=== PATIENT | male | born 1985 | race American Indian/Alaskan Native ===

== ENCOUNTER → 2023-05-18 09:22 | Outpatient (CLI) | payer MEDICAID, OTHER, SELFPAY ==
--- NOTE | 2023-05-18 | DI.RAD.S_ITS ---
PROCEDURE: XR CHEST 2V INDICATIONS: dive physical examination TECHNIQUE: 2 views of the chest were acquired. COMPARISON: None. FINDINGS: Surgical changes and devices: None. Lungs and pleura: Lungs are clear. No pleural effusions or pneumothorax. Mediastinum: Mediastinal contours are normal. Heart size is normal. Bones and chest wall: No suspicious bony abnormalities. Soft tissues appear unremarkable. IMPRESSION: No acute cardiopulmonary pathology. Dictated by: Horace Arvizu M.D. on 05/18/2023 at 11:11 Approved by: Horace Arvizu M.D. on 05/18/2023 at 11:11
== END ==
PROVIDERS: PCP Family Medicine; Referring Provider Family Medicine; Visit Provider Family Medicine
DX: Z01.89 Encounter for other specified special examinations (principal)
CPT/HCPCS: 71046

== ENCOUNTER → 2023-05-25 09:46 | Outpatient (CLI) | payer MEDICAID, OTHER, SELFPAY ==
--- NOTE | 2023-06-02 14:43 | PM.PFT.1 ---
Pulmonary Function Test Referral & Results Date Patient Seen: 05/25/23 Results: The spirometry demonstrates an FVC of 4.88 L which is 103% of predicted. The FEV1 was measured at 3.80 L which is 99% of predicted. The FEV1/FVC ratio was 78 which is 95% of predicted. Following the administration of bronchodilator there was 49% improvement in FEF 25-75%. Lung volumes show an SVC of 5.03 L which is 109% of predicted. The diffusing capacity was measured at 31.42 which is 116% of predicted. The maximum voluntary ventilation was normal Interpretation: This study demonstrates normal pulmonary function
== END ==
PROVIDERS: PCP Family Medicine; Referring Provider Family Medicine; Visit Provider Family Medicine
DX: J98.8 Other specified respiratory disorders (principal); Z87.891 Personal history of nicotine dependence; Z72.89 Other problems related to lifestyle; F17.210 Nicotine dependence, cigarettes, uncomplicated
CPT/HCPCS: 94060; 94726; 94729